=== PATIENT | female | born 1965 | race African-American/Black ===

== ENCOUNTER 2018-07-24 05:56 | Inpatient (IN) | payer OTHER ==
[~2018-07-24] VITALS: Ht 170.2 cm; Wt 83.0 kg
[2018-07-24 06:30] VITALS: BP 144/94
[2018-07-24] MEDS ORDERED: oxyCODONE HCL SR 10MG TAB.SR.12H PO ONE (06:30)
[2018-07-24] MEDS ORDERED: METOCLOPRAMIDE HCL 10 MG/2 ML VIAL IV ONE (06:30)
[2018-07-24] MEDS ORDERED: CELECOXIB 100 MG CAPSULE PO ONE (06:30)
[2018-07-24] MEDS ORDERED: ACETAMINOPHEN ES 500 MG TABLET PO ONE (06:30)
--- NOTE | 2018-07-24 06:30 | NUR ---
MS RN NOTES RECEIVED PT VIA WC , ABLE TO TRANSFER HERSELF TO BED SAFELY, PT IS A/O X 4 , VERBALLY RESPONSIVE. NO DISTRESS , NOR SOB NOTED. RESPIRATION IS EVEN AND UNLABORED. INSERTED IV ON RFA G # 18 X 1 ATTEMPT, WITH GOOD VENOUS RETURN. MOTHER AND BROTHER AT BEDSIDE. ALL NEEDS ATTENDED AND MET. KEPT COMFORTABLE. SAFETY PRECAUTIONS OBSERVED. CALL LIGHT WITHIN REACH. WILL CONT TO MONITOR.
--- NOTE | 2018-07-24 07:24 | NUR ---
MS RN NOTES PT IN BED, ASLEEP AT THIS TIME, AROUSES EASILY. A/O X 4 , VERBALLY RESPONSIVE. NO DISTRESS , NOR SOB NOTED. RESPIRATION IS EVEN AND UNLABORED. IV ON RFA G # 18 INTACT AND PATENT . MOTHER AND BROTHER AT BEDSIDE. ALL NEEDS ATTENDED AND MET. KEPT COMFORTABLE. SAFETY PRECAUTIONS OBSERVED.NO C/O PAIN OR DISCOMFORT AT THIS TIME. CALL LIGHT WITHIN REACH. ENDORSE TO BETTE VAZQUEZ ACCORDINGLY.
--- NOTE | 2018-07-24 07:25 | NUR ---
PT WITH PRE OP MEDS TO BE GIVEN, ENDORSED TO BETTE VAZQUEZ ACCORDINGLY.
--- NOTE | 2018-07-24 07:28 | NUR ---
MS RN OPENING NOTES RECEIVED PT LAYING IN BED WITH HOB SLIGHTLY ELEVATED. FAMILY AT BEDSIDE. PT IS A/O X4, AFEBRILE. RESPIRATIONS ARE EVEN AND UNLABORED, NOT IN ANY ACUTE DISTRESS NOTED. PT DENIES ANY PAIN, SOB, N/V. IV SITE TO RFA INTACT, NO INFILTRATION NOTED. DRESSING KEPT CLEAN AND DRY. SAFETY MEASURES ARE ARE IN PLACE. BED IS IN ITS LOWEST AND LOCKED POSITION. INSTRUCTED PT TO USE CALL LIGHT WHEN ASSISTANCE IS NEEDED, CALL LIGHT IS LEFT WITHIN REACH. WILL CONTINUE TO MONITOR THROUGHOUT SHIFT FOR CONTINUITY OF CARE.
--- NOTE | 2018-07-24 07:48 | NUR ---
MS RN NOTES-- MORNING DUE MEDICATIONS GIVEN EXCEPT FOR TYLENOL D/T OMNICELL NOT HAVING TYLENOL AVAILABLE. NOTIFIED PHARMACY. PT MADE AWARE.
[2018-07-24 08:00] VITALS: BP 136/88
--- NOTE | 2018-07-24 08:30 | NUR ---
MS BETTE NOTES-- ALL PREOP MEDS ADMINISTERED.
[2018-07-24] MEDS ORDERED: GABA-534 PO (09:21)
[2018-07-24] MEDS ORDERED: NORT25CA PO (09:21)
[2018-07-24] MEDS ORDERED: LEVO100T9 PO (09:21)
--- NOTE | 2018-07-24 11:05 | NUR ---
MS RN NOTES-- PT P/U BY OR STAFF FOR SURGERY TO RIGHT KNEE IN STABLE CONDITION. PT REMAINS A/O X4, AFEBRILE. RESPIRATIONS ARE EVEN AND UNLABORED, NOT IN ANY ACUTE DISTRESS NOTED. IV SITE TO RFA G18 INTACT, NO INFILTRATION NOTED. DRESSING KEPT CLEAN AND DRY. BELONGINGS BROUGHT WITH PT TO OR.
[2018-07-24] MEDS ORDERED: BUPIVACAINE MPF 0.5% W/EPI INJ 30 ML VIAL ONE (11:23)
[2018-07-24] MEDS ORDERED: MORPHINE SULFATE INJ 4 MG/ML DISP.SYRIN ONE (11:23)
[2018-07-24] MEDS ORDERED: KETOROLAC TROMETHAMINE INJ 30 MG/ML VIAL ONE ×2 (11:23→15:01)
[2018-07-24] MEDS ORDERED: BACITRACIN 50000 UNITS/VIAL ONE (11:23)
[2018-07-24] MEDS ORDERED: TRANEXAMIC ACID 1,500 MG in SODIUM CHLORIDE IRRIG SOLUTION 85 ML IR ONE (11:30)
[2018-07-24] MEDS ORDERED: BUPIVACAINE 0.5 % PF 150 MG/30 ML VIAL ONE (11:37)
[2018-07-24] MEDS ORDERED: HYDROMORPHONE INJ 2 MG/ML DISP.SYRIN ONE (11:37)
[2018-07-24] MEDS ORDERED: SEVOFLURANE 250 ML BOTTLE IH ONE (12:16)
[2018-07-24] MEDS ORDERED: HYDROMORPHONE 1 MG/1 ML DISP.SYRIN ONE (15:02)
[2018-07-24] MEDS ORDERED: oxyCODONE IR immediate release 5 MG ONE (15:03)
[2018-07-24] MEDS ORDERED: FENTANYL PF 100MCG/2ML AMPUL ONE (15:16)
[2018-07-24] MEDS ORDERED: MAGNESIUM HYDROXIDE 30 ML UDC PO PRN (15:30)
[2018-07-24] MEDS ORDERED: DOCUSATE SODIUM 100 MG CAPSULE PO PRN (15:30)
[2018-07-24] MEDS ORDERED: ASPIRIN 600 MG/SUPP.RECT RC ONE (15:30)
[2018-07-24] MEDS ORDERED: ACETAMINOPHEN 325 MG TABLET PO PRN (15:30)
[2018-07-24] MEDS ORDERED: BISACODYL SUPP (10 MG) 10 MG/SUPP.RECT SUPP.RECT RC PRN (15:30)
[2018-07-24 16:00] VITALS: BP 99/61
[2018-07-24] MEDS ORDERED: ONDANSETRON HCL/PF 4 MG/2 ML VIAL IV PRN (16:00)
[2018-07-24] MEDS ORDERED: HYDROCODONE/APAP 5/325MG 1 EACH TABLET PO PRN (16:00)
--- NOTE | 2018-07-24 16:15 | NUR ---
MS RN NOTES-- PT CAME BACK FROM PACU VIA GURNEY IN STABLE CONDITION ACCOMPANIED BY 2 OR STAFF. PT IS S/P RIGHT TOTAL KNEE REPLACEMENT. DRESSING NOTED TO BE INTACT, KEPT CLEAN AND DRY W/ LEG BRACE IN PLACE. ICE PACK PLACED ON TOP. PT IS NOTED TO BE SLEEPING, HOWEVER EASILY AROUSABLE. RESPIRATIONS ARE EVEN AND UNLABORED, NOT IN ANY ACUTE DISTRESS NOTED. PT DENIES ANY PAIN AT THIS TIME. NO C/ SOB, N/V. BP 99/61 P88 R17 T97.6 O2SAT 98% RA. IV SITE TO RFA INTACT, G22, NO INFILTRATION NOTED. DRESSING KEPT CLEAN AND DRY. IV FLUIDS RUNNING AT 75ML/HR, TOLERATING WELL.SAFETY MEASURES ARE IN PLACE. INSTRUCTED PT TO USE CALL LIGHT WHEN ASSISTANCE IS NEEDED, CALL LIGHT IS LEFT WITHIN REACH. ORDERS BY DR. RICHMOND CARRIED OUT. WILL CONTINUE TO MONITOR THROUGHOUT SHIFT FOR CONTINUITY OF CARE. NOTIFIED MOM ЮЛИЯ RE: PT BACK FROM SURGERY.
[2018-07-24] MEDS: IV D5/0.45 NACL 1,000 ML IV PRN (16:44)
[2018-07-24] MEDS: NORTRIPTYLINE HCL 25 MG CAPSULE PO SCH (17:25)
[2018-07-24] MEDS: GABAPENTIN 300 MG CAPSULE PO SCH (17:25)
[2018-07-24 17:33] LABS: HEMATOCRIT 36 % (33-45); HEMOGLOBIN 11.8 g/dL (11.5-14.8); MEAN CORPUSCULAR HGB CONC 33 g/dl (31.0-36.0); MEAN CORPUSCULAR VOLUME 88 fL (82-100); PLATELET COUNT (AUTO) 306 /CMM (150-450); RDW COEFFICIENT OF VARIATION 16.8 (11.5-15.0); WHITE BLOOD COUNT (AUTO) 7.2 K/uL (4.3-11.0)
[2018-07-24 17:47] LABS: CALCIUM, SERUM 7.9 mg/dL (8.5-10.1); CREATININE 1.3 mg/dL (0.6-1.3); MAGNESIUM 1.7 mg/dL (1.8-2.4); PHOSPHORUS 3.8 mg/dL (2.5-4.9); POTASSIUM 3.9 mmol/L (3.5-5.1)
--- NOTE | 2018-07-24 18:21 | NUR ---
MS RN CLOSING NOTES ALL DUE MEDS GIVEN, NEEDS MET AND RENDERED. PT IS A/O X4, AFEBRILE. RESPIRATIONS ARE EVEN AND UNLABORED. PT ABLE TO MOVE TOES AND BUE. PUPILS ARE REACTIVE TO LIGHT. BILATERAL HAND CREDIT RISK MANAGER ARE STRONG AND EQUAL. IV SITE INTACT, NO INFILTRATION NOTED. IV FLUIDS RUNNING AT 75ML/HR AND TOLERATING WELL. PT ABLE TO TOLERATE REGULAR DIET DURING DINNER. PT ABLE TO MAKE NEEDS KNOWN. SAFETY MEASURES ARE IN PLACE. REMINDED PT TO USE CALL LIGHT WHEN ASSISTANCE IS NEEDED, CALL LIGHT IS LEFT WITHIN REACH. WILL ENDORSE TO NEXT SHIFT FOR CONTINUITY OF CARE.
[2018-07-24 19:11] LABS: THYROID STIMULATING HORMONE 44.823 uIU/mL (0.358-3.74)
[2018-07-24 19:15] LABS: LYMPHOCYTES % (MANUAL) 11 % (16-48); MONOCYTES % (MANUAL) 6 % (0-11.0); NEUTROPHILS % (MANUAL) 83 (42-76)
--- NOTE | 2018-07-24 19:43 | NUR ---
ms/rn opening notes EECEIVED PATIETN IN BED, HOB ELEVATED, RESTING COMFORTABLY IN BED, VERBALIZED PAIN LEVEL OF 5/10 BUT TOLERABLE, PROVIDED AND OFFERED FLUIDS, DISCUSSED PLAN OF CARE, RESPIRATIONS EVEN AND UNLABORED, SKIN DRY, PROVIDED LOTION DUE TO REPORTED AND OBSERVED DRY SKIN. SNACKS WAS PROVIDED AND OFFERED, IV FLUIDS RUNNING D55 1/2 NS AT 75 ML/HR, ON RFA PATENT. CALL LIGHTS WITHIN REACH, BED IN LOCK POSITION. WILL CONTINUE TO MONITOR. RECEIVED ENDORSEMENT FROM AM RN FOR MOISES.
[2018-07-24 20:00] VITALS: BP 116/69
[2018-07-24] MEDS: CEFAZOLIN SODIUM 1 GM in IV SODIUM CHLORIDE 0.9% 50 ML IV SCH (20:11)
[2018-07-24] MEDS ORDERED: ZOLPIDEM TARTRATE 5 MG TABLET PO PRN (22:00)
[2018-07-24] MEDS ORDERED: Magnesium 1GM/D5W 100ML PREMIX 100 ML IV SCH (23:30)
[2018-07-24] MEDS: KETOROLAC TROMETHAMINE INJ 30 MG/ML VIAL IV SCH (23:43)
[2018-07-25] MEDS: CEFAZOLIN SODIUM 1 GM in IV SODIUM CHLORIDE 0.9% 50 ML IV SCH (04:13)
[2018-07-25] MEDS: KETOROLAC TROMETHAMINE INJ 30 MG/ML VIAL IV SCH ×4 (05:34→23:33)
[2018-07-25] MEDS: IV D5/0.45 NACL 1,000 ML IV PRN (05:52)
[2018-07-25 06:25] LABS: HEMATOCRIT 34 % (33-45); HEMOGLOBIN 11.2 g/dL (11.5-14.8); MEAN CORPUSCULAR HGB CONC 33 g/dl (31.0-36.0); MEAN CORPUSCULAR VOLUME 89 fL (82-100); PLATELET COUNT (AUTO) 306 /CMM (150-450); RED BLOOD CELL COUNT(AUTO) 3.86 MIL/uL (4.0-5.2); WHITE BLOOD COUNT (AUTO) 9.1 K/uL (4.3-11.0)
--- NOTE | 2018-07-25 06:29 | NUR ---
314-1 MS/ RN CLOSING NOTES PATIENT ABLE TO SLEEP DURING THE NIGHT, PAIN MANAGMENT EFFECTIVE. OFFERED AND PROVIDED SNACKS. NO NAUSEA AND VOMITIING EPISODE. SKIN WARM TO TOUCH. , TORRES CATHETER DRAINING URINE. IV ANTIBIOTIC ADMINISTERED, WITH NO S/S OF ADVERSE REACTION. KEPT COMFORTABLE. BED IN LOCK POSITION, CALL LIGHTS WITHIN REACH, WILL ENDORSE TO AM RN FOR MOISES.
[2018-07-25 06:40] LABS: CALCIUM, SERUM 7.8 mg/dL (8.5-10.1); CREATININE 1.5 mg/dL (0.6-1.3); POTASSIUM 3.8 mmol/L (3.5-5.1)
--- NOTE | 2018-07-25 07:20 | NUR ---
MS RN INITIAL NOTES Report received at bedside. Patient received in bed, sleeping comfortably, easily aroused. Complained of pain with help of pain mgmt given Q6H routinely. S/P elective Right knee arthroplasty by Dr. Murphy. Not in any type of distress. D5 0.5NS running @75ml/hr. Parish Cath noted. Safety measures in place. Will continue to monitor and assess patient.
[2018-07-25 07:29] LABS: BAND % (MANUAL) 1 % (0.0-5.0); LYMPHOCYTES % (MANUAL) 17 % (16-48); MONOCYTES % (MANUAL) 14 % (0-11.0); NEUTROPHILS % (MANUAL) 68 (42-76)
[2018-07-25] MEDS ORDERED: LEVOTHYROXINE SODIUM 100 MCG TABLET PO SCH (07:30)
[2018-07-25 08:00] VITALS: BP 114/75
[2018-07-25] MEDS: GABAPENTIN 300 MG CAPSULE PO SCH ×2 (09:01→17:15)
[2018-07-25] MEDS: ASPIRIN EC 325 MG TABLET.DR PO SCH ×2 (09:02→17:14)
[2018-07-25] MEDS: CELECOXIB 100 MG CAPSULE PO SCH ×2 (09:02→20:20)
[2018-07-25] MEDS: HYDROCODONE/APAP 5/325MG 1 EACH TABLET PO SCH ×4 (09:02→20:20)
--- NOTE | 2018-07-25 13:26 | NUR ---
MS RN - PEGUERO CATH D/C d/c peguero cath with 600cc urine output: naya and clear. Will monitor for urinary retention
[2018-07-25 16:00] VITALS: BP 101/62
[2018-07-25] MEDS: NORTRIPTYLINE HCL 25 MG CAPSULE PO SCH (18:43)
--- NOTE | 2018-07-25 19:29 | NUR ---
MS RN CLOSING NOTES Report given at bedside. Patient remained in bed, awake, verbally responsive. All due meds given and tolerated. On CPM machine for right knee as ordered 2hrs on-2 hrs off started at 11am-1pm then 3pm-5pm. Immobilizer on when not on CPM. Complained of pain with help of pain mgmt scheduled. No SOB noted. Not in any type of distress. Patient complained of feeling warm, checked temp=Afebrile 98.7. Safety measures in place. Bed in locked and lowest position with call light within reach. All needs anticipated and met. Parish Cath Discontinued. Patient voided well in bathroom. Endorsed to oncoming shift nurse
--- NOTE | 2018-07-25 19:30 | NUR ---
MS/RN RECEIVE PATIENT AWAKE, ALERT, ORIENTED, COMFORTABLE, WITH MILD TOLERABLE PAIN TO RT. KNEE, NO DISTRESS NOTED, CALL LIGHT IN REACH. WILL MONITOR.
[2018-07-25 20:00] VITALS: BP 98/59
[2018-07-26] MEDS: HYDROCODONE/APAP 5/325MG 1 EACH TABLET PO SCH ×6 (01:00→20:03)
--- NOTE | 2018-07-26 01:51 | NUR ---
MS/RN PATIENT IS SLEEPING AT THIS TIME, UNABLE TO GIVE HYDROCODONE.
--- NOTE | 2018-07-26 05:19 | NUR ---
MS/RN Unable to give [place] at this time, patient is sleeping soundly. Will give when patient wakes up.
[2018-07-26] MEDS: KETOROLAC TROMETHAMINE INJ 30 MG/ML VIAL IV SCH ×2 (06:20→11:37)
--- NOTE | 2018-07-26 06:37 | NUR ---
MS/RN PATIENT IS AWAKE, COMFORTABLE, NO DISTRESS NOTED, NO CHANGE IN CONDITION, ALL NEEDS ATTENDED AT THIS TIME. WILL CONTINUE TO MONITOR.
--- NOTE | 2018-07-26 07:36 | NUR ---
MS RN OPENING NOTES PT WAS RECEIVED IN SLEEPING BED AT LOWEST AND LOCKED POSITION WITH SIDE RAILS UP X2, NO S/S OF OR DISTRESS NOTED, BREATHING IS EVEN AND UNLABORED ON RA, A/OX4, PT IS S/P RIGHT TKR, PT IS AMBULATORY WITH WALKER PRESENT AT BEDSIDE, IV IS PATENT AND INTACT, SAFETY PRECAUTIONS IN PLACE, CALL LIGHT WITHIN REACH, WILL MONITOR ACCORDINGLY
[2018-07-26 08:00] VITALS: BP 107/71
[2018-07-26] MEDS: GABAPENTIN 300 MG CAPSULE PO SCH ×2 (08:15→17:10)
[2018-07-26] MEDS: LEVOTHYROXINE SODIUM 100 MCG TABLET PO SCH (08:16)
[2018-07-26] MEDS: ASPIRIN EC 325 MG TABLET.DR PO SCH ×2 (08:16→17:10)
[2018-07-26] MEDS: CELECOXIB 100 MG CAPSULE PO SCH ×2 (08:16→20:09)
[2018-07-26 16:00] VITALS: BP 97/61
[2018-07-26] MEDS: NORTRIPTYLINE HCL 25 MG CAPSULE PO SCH (17:10)
--- NOTE | 2018-07-26 18:58 | NUR ---
MS RN CLOSING NOTES PT WAS RECEIVED IN SLEEPING BED AT LOWEST AND LOCKED POSITION WITH SIDE RAILS UP X2, NO S/S OF OR DISTRESS NOTED, BREATHING IS EVEN AND UNLABORED ON RA, A/OX4, PT IS S/P RIGHT TKR, PT IS AMBULATORY WITH WALKER PRESENT AT BEDSIDE, IV IS PATENT AND INTACT, SAFETY PRECAUTIONS IN PLACE, CALL LIGHT WITHIN REACH, ALL NEEDS ATTENDED TO, WILL ENDORSE TO ETL LEAD
--- NOTE | 2018-07-26 19:50 | NUR ---
MS/RN OPENING NOTES RECEIVED PATIENT IN BED, AWAKE, ALERT X3, WATCHING TV AND ABLE TO VERBALIZE NEEDS, PROVIDED SNACKS AND FLUIDS, RESPIRATIONS EVEN AND UNLABORED, NO OBSERVED GRIMACE AND GUARDING NOTED, WITH ROUTINE PAIN MEDICATION TO BE GIVEN, MONITORING FOR ANY CHANGES. SKIN WARM TO TOUCH, INSTRUCTED TO USE CALL LIGHTS FOR ASSISTANCE, RECEIVED ENDORSEMENT FROM AM RN FOR MOISES, PT EVALUATION ABLE TO USE WALKER AND WITH BRP SUPERVISED, ON CPM MACHINE FOR 4 TO 6 HOURS, CALL LIGHTS WITHIN REACH, BED IN LOCKED POSITION WILL MONITOR.
[2018-07-26 20:00] VITALS: BP 98/61
[2018-07-27] MEDS: HYDROCODONE/APAP 5/325MG 1 EACH TABLET PO SCH ×6 (00:21→21:58)
--- NOTE | 2018-07-27 00:22 | NUR ---
ms/rn notes PATIENT ON PAIN MEDICATION NORCO 5-325 MG PO GIVEN, WITH PAIN OL RIGHT LEG, KEEP IMMOBILIZED, BOWEL MANAGEMENT DUE TO CONSTIPATION GIVEN PRUNE JUICE AND MILK OF MAGNESIA.
--- NOTE | 2018-07-27 05:37 | NUR ---
ms/rn notes patietn awake, pain medication given reported pain of 5/10, will monitor.
--- NOTE | 2018-07-27 06:49 | NUR ---
314-1 MS/RN NOTES PATIENT ABLE TO VERBALZE NEEDS, PAIN MANAGED AND ABLE TO DO SELF CARE, PARTICIPATED WITH CARE AND CPM . USE PF WALKER. ASSIST. ATTENDED TO ALL NEEDS, CAA LIGHTS WITHIN REACH, OFFERED FLUIDS, BED LOCKED POSITION, RESPIRATIONS EVEN AND UNLABORED WILL ENDORSE TO AM RN FOR MOISES.
[2018-07-27 07:04] LABS: HEMATOCRIT 34 % (33-45); HEMOGLOBIN 10.8 g/dL (11.5-14.8); MEAN CORPUSCULAR HGB CONC 32 g/dl (31.0-36.0); MEAN CORPUSCULAR VOLUME 90 fL (82-100); PLATELET COUNT (AUTO) 242 /CMM (150-450); RED BLOOD CELL COUNT(AUTO) 3.79 MIL/uL (4.0-5.2); WHITE BLOOD COUNT (AUTO) 7.6 K/uL (4.3-11.0)
--- NOTE | 2018-07-27 07:07 | NUR ---
MS RN NOTES PATIENT IN BED , ALERT ORIENTED X 4, NO ACUTE DISTRESS NOTED. NO SOB NOTED. DENIED ANY PAIN AT THIS. IV ACCESS PATENT AND INTACT, NO REDNESS OR SWELLING NOTED. SAFETY MEASURES IN PLACE. CALL LIGHT WITHIN REACH, WILL CONTINUE TO MONITOR ACCORDINGLY.
[2018-07-27 07:27] LABS: CALCIUM, SERUM 7.9 mg/dL (8.5-10.1); CREATININE 1.4 mg/dL (0.6-1.3); MAGNESIUM 2.6 mg/dL (1.8-2.4); PHOSPHORUS 2.8 mg/dL (2.5-4.9); POTASSIUM 4.7 mmol/L (3.5-5.1)
[2018-07-27 08:00] VITALS: BP 97/63
[2018-07-27 08:09] LABS: LYMPHOCYTES % (MANUAL) 24 % (16-48); MONOCYTES % (MANUAL) 11 % (0-11.0); NEUTROPHILS % (MANUAL) 65 (42-76)
[2018-07-27] MEDS: LEVOTHYROXINE SODIUM 100 MCG TABLET PO SCH (08:29)
[2018-07-27] MEDS: ASPIRIN EC 325 MG TABLET.DR PO SCH ×2 (08:29→17:49)
[2018-07-27] MEDS: GABAPENTIN 300 MG CAPSULE PO SCH ×2 (08:29→17:49)
[2018-07-27] MEDS: CELECOXIB 100 MG CAPSULE PO SCH ×2 (08:29→21:34)
[2018-07-27 16:00] VITALS: BP 94/60
--- NOTE | 2018-07-27 19:00 | NUR ---
MS RN NOTES PATIENT IN BED , ALERT ORIENTED X 4, NO ACUTE DISTRESS NOTED. NO SOB NOTED. DENIED ANY PAIN AT THIS. IV ACCESS PATENT AND INTACT, NO REDNESS OR SWELLING NOTED.DUE MEDICATIONS GIVEN, NO ASE NOTED. NEEDS ATTENDED AND ANTICIPATED. KEPT CLEAN DRY AND COMFORTABLE SAFETY MEASURES IN PLACE. CALL LIGHT WITHIN REACH. ENDORSED TO NIGHT NURSE FOR CONTINUITY OF CARE.
[2018-07-27] MEDS: NORTRIPTYLINE HCL 25 MG CAPSULE PO SCH (19:12)
--- NOTE | 2018-07-27 19:20 | NUR ---
MS RN NOTES RECEIVED PT IN BED, AWAKE, ALERT AND ORIENTED X 4, DENIES PAIN AT THIS TIME, NO SOB, TOLERATING ROOM AIR. ALL PATIENT'S NEEDS ATTENDED TO AT THIS TIME, PLACED CALL LIGHT WITHIN EASY REACH. CPM IN PLACE ON RIGHT LEG, APPLIED ORDERED. PLACED BED N LOW POSITION AND LOCKED IN PLACE. WILL CONTINUE TO MONITOR PT.
[2018-07-27 20:00] VITALS: BP 100/68
[2018-07-28] MEDS: HYDROCODONE/APAP 5/325MG 1 EACH TABLET PO SCH ×5 (01:00→17:21)
--- NOTE | 2018-07-28 06:38 | NUR ---
RN CLOSING NOTES PATIENT ASLEEP BUT EASILY AROUSABLE, VERBALLY REPSONSIVE AND IN NO ACUTE DISTRESS. NOTED PT WITH 3 SMALL BOWEL MOVEMENTS IN THIS SHIFT. PT SLEPT WELL THROUGHOUT THE SHIFT, ALL NEEDS ATTENDED TO, MOTIVATED TO SELF CARE NAD CAN SAFELY AMBULATE TO THE BATHROOM WITH A FWW. PALCEDC ALL LIGHT WITHIN EASY REACH, BED IN LOW POSITION AND LOCKED IN PLACE. IMMOBILIZER ON RIGHT KNEE WHILE PT IN BED. WILL ENDORSE TO AM SHIFT NURSE FOR CONTINUITY OF CARE.
[2018-07-28] MEDS: LEVOTHYROXINE SODIUM 100 MCG TABLET PO SCH (07:57)
[2018-07-28 08:00] VITALS: BP 112/74
[2018-07-28] MEDS: HYDROMORPHONE 1 MG/1 ML DISP.SYRIN IV PRN ×2 (08:21→15:54)
[2018-07-28] MEDS: GABAPENTIN 300 MG CAPSULE PO SCH ×2 (08:54→17:21)
[2018-07-28] MEDS: ASPIRIN EC 325 MG TABLET.DR PO SCH ×2 (08:54→17:21)
[2018-07-28] MEDS: CELECOXIB 100 MG CAPSULE PO SCH (08:54)
[2018-07-28] MEDS ORDERED: HYDROCODONE/APAP 5/325MG 1 EACH TABLET PO SCH (09:00)
[2018-07-28] MEDS ORDERED: HYDR-3972 PO (12:00)
[2018-07-28] MEDS ORDERED: CELE100C PO (12:00)
[2018-07-28] MEDS ORDERED: ASPI-869 PO (12:00)
[2018-07-28] MEDS ORDERED: LEVO100T PO (12:00)
[2018-07-28 16:00] VITALS: BP 108/68
[2018-07-28] MEDS: NORTRIPTYLINE HCL 25 MG CAPSULE PO SCH (18:09)
--- NOTE | 2018-07-28 18:10 | NUR ---
MEDICATED MULTIPLE TIMES WITH ROUTINE NORCO TABS AND X2 WITH DILAUDID INJECTION.UP SEVERAL TIMES WITH PTX.TOLERATED WELL.KNEE DRESSING DRY AND INTACT.ALL PAPERS SIGNED FOR DISCHARGE.CPM ON MOST OF DAY.AT THIS TIME HEP LOCK REMOVED.TRANSFERRED TO [facility] VIA AMBULANCE REPORT CALLED TO [facility].
== END 2018-07-28 18:15 | DRG 470 ==
LOC: DS 05:56 → MED 05:57
PROVIDERS: ADMIT Orthopaedic Surgery; ATTEND Orthopaedic Surgery
PROC: 0SRC0J9 Replacement of Right Knee Joint with Synthetic Substitute, Cemented, Open Approach (ICD-10-PCS; principal; 2018-07-24 09:40)
DX: M17.11 Unilateral primary osteoarthritis, right knee (principal); E03.9 Hypothyroidism, unspecified; E83.42 Hypomagnesemia; G89.29 Other chronic pain; Z90.49 Acquired absence of other specified parts of digestive tract; Z98.84 Bariatric surgery status; Z79.899 Other long term (current) drug therapy
CPT/HCPCS: 36415; 73560-TC; 80048-TC; 83735-TC; 84100-TC; 84439-TC; 84443-TC; 85025-TC; 87081-TC; 88305-TC; 88311-TC; 97110-TC; 97116-TC; 97530-TC; 97760-TC; A4216; A4217; A6209; A6402; C1713; G0378; J0360; J0690; J1100; J1170; J1885; J2270; J2405; J2704; J2765; J3010; J3475; J3490; L1830; Z7610